=== PATIENT | male | born 1945 | race Caucasian/White ===

== ENCOUNTER 2023-03-02 06:50 | Day surgery (SDC) | payer OTHER ==
[2023-02-24 13:34] VITALS: BP 174/88
[~2023-03-02] VITALS: Ht 175.3 cm; Wt 72.3 kg
[~2023-03-02 06:50] MED LIST: BAYER CHEWABLE81 MG PO; MULTI-DAY PLUS1 EAC1 PO; OSTERA TABLET1 EACH PO; OXYBUTYNIN CHLO10 MG PO; STRESS-C WITH1 EAC1 PO; TOPROL XL50 MG PO; VENTOLIN HFA18 GM; ZESTRIL40 MG PO
[2023-03-02 07:05] VITALS: BP 159/82
[2023-03-02] MEDS ORDERED: VITAMIN D325 MC2 PO (07:09)
[2023-03-02] MEDS ORDERED: IPRATROPIU0.2 MG/1 M INH (07:10)
--- NOTE | 2023-03-02 07:42 | NUR ---
ROSHNI ROUNDS. 30 MINUTES. FACILITATED STORY TELLING; LISTENED EMPATHETICALLY. PT DECLINED PRAYER IN ROOM. PROVIDED SILENT PRAYER FOR SUCCESSFUL PROCEDURE.
--- NOTE | 2023-03-02 10:38 | NUR ---
03/02/23 Cherrie Gray 0954 PT TO PACU FROM OR. ORAL AIRWAY, MASK, AND 02 AT 10 L. RESPIRATIONS TERESA AND UNLABORED. 1002 ORAL AIRWAY DC'D. TYPIST NOTIFIED OF BP TRENDING DOWN. MEDICATION GIVEN BY TYPIST. 1009 PT C/O BEING COLD, WARM BLANKETS APPLIED. PT AWAKE AND ORIENTED, CONVERSING APPROPRIATELY. DR GODINEZ AT BEDSIDE.
--- NOTE | 2023-03-02 11:28 | OR ---
[facility] [address], [place] [address] Signed DATE OF OPERATION: 03/02/2023 SURGEON: Dennis Hodge MD PREOPERATIVE DIAGNOSES: 1. Anorexia. 2. Weight loss (22 pounds). 3. Mother with a history of colonic polyps. 4. Diverticulosis. 5. Reducible supraumbilical trocar site incisional hernia. POSTOPERATIVE DIAGNOSES: 1. Mild to moderate diffuse gastritis. 2. Small hiatal hernia (2 cm). 3. GE junction at 36 cm. 4. Minimal sigmoid diverticulosis. 5. Minimal external hemorrhoids. 6. Reducible supraumbilical trocar site incisional hernia. PROCEDURES: 1. EGD with CLOtest and biopsies of the antrum at GE junction. 2. Colonoscopy without biopsy. ESTIMATED BLOOD LOSS: None. INDICATIONS: Aidan is a 77-year-old gentleman, asked to see me for both upper and lower endoscopy. He said he initially gained some weight after he retired. He said for the last couple of years, he has had no appetite and he is down 22 pounds. He thought that was a good idea. He said his prostate has been removed with the help of robot and his PSA levels remained low. He told his mother had colonic polyps. He was scheduled to see a couple of different gastroenterologists over an hour away. He said that was not very feasible. He was therefore asked to see me with respect to the above. He said he also gave some stool samples recently and they were all negative. He had a CT scan of the chest, abdomen, and pelvis because of his history of smoking as well as the weight loss. He said there was some emphysema and little diverticulosis. He has probably had a right inguinal hernia repair in the past. He really gives me no upper or lower GI complaints. He said he is really not worried. In fact, today he was much more worried about a supraumbilical trocar site incisional hernia that is reducible. This is associated with Electronically Signed By: DENNIS HODGE MD 03/02/23 1128 PATIENT NAME: AIDNA GREEN OPERATIVE REPORT DATE OF : 49 REPORT #: [id number] PHYSICIAN: DENNIS HODGE MD PCP: NO PRIMARY CARE PHYSICIAN REPORT IS CONFIDENTIAL AND NOT TO BE RELEASED WITHOUT AUTHORIZATION [facility] [address], [place] [address] Signed his robotic-assisted laparoscopic prostatectomy. He said he would like to have that repaired. That would be a simple matter for us to repair primarily. He wants me to review that with him in the office at followup. He is hoping the consult has been forwarded from the [facility]. In the office, I had given him a pamphlet on both upper and lower endoscopy. We looked at it in detail. He said he has never had a colonoscopy previously. There is risk including, but not limited to gas bloating, crampy abdominal pain, bleeding, perforation requiring surgery, and missed diagnosis. We also had reviewed the written instructions for the bowel prep line by line. We also went over his medications. I also explained that given his COPD, daily alcohol use and his sleep apnea that he really needed monitored anesthesia care. In that regard, he required preoperative blood work and an EKG. He had expressed understanding and wished to proceed. DESCRIPTION OF PROCEDURE: Aidan was taken into our endoscopy suite and placed in the supine semi-recumbent position. The posterior oropharynx was anesthetized with lidocaine spray. A bite block was utilized for the case. The adult gastroscope was introduced and advanced under direct visualization of the camera into the duodenum. His duodenum and pyloric channel were completely unremarkable. In the stomach, he had mild diffuse erythematous changes consistent with minimal to moderate gastritis. I think mostly associated with smoking and the alcohol. We took biopsies from the antrum for pathologic review as well as CLOtest. Upon retroflexion of the scope, I can see he has a small hiatal hernia, it is 2 cm maybe at the most. The scope was withdrawn up through the area of the GE junction, which was compliant without stricture. There was no gastric or esophageal varices. His GE junction is at 36 cm. He does have some disruption to the Z-line just on one side. We went ahead and took a biopsy of this area. There was no distal esophagitis. No esophagitis in the middle or upper esophagus. However, his arytenoids and the epiglottis and so forth are inflamed and red, little bit edematous from all of his smoking. The vocal cord seemed to be unremarkable. After this, the gas was suctioned out and the gastroscope removed. Aidan tolerated his upper endoscopy quite well. Aidan was rotated into the left lateral decubitus position. He was maintained on IV sedation with propofol per nurse our service consultant. A digital rectal exam was performed. He has very small minimal circumferential external hemorrhoids. He had good sphincter tone. There were no masses. His prostate is absent. The adult colonoscope was introduced and advanced all around into the cecum under direct visualization of the camera without difficulty. It took just a few minutes to get through his sigmoid colon and up into the cecum itself. His prep was quite good. We could easily see the appendiceal orifice and the ileocecal valve. The scope was then slowly withdrawn. We found no polyps in his colon or rectum. He did have some diverticula in the sigmoid colon. They were moderate in size, few in number and scattered about. Upon retroflexion of the scope, we really did not appreciate any pathology above the anal Electronically Signed By: DENNIS HODGE MD 03/02/23 1128 PATIENT NAME: AIDAN GREEN OPERATIVE REPORT DATE OF : 49 REPORT #: [id number] PHYSICIAN: DENNIS HODGE MD PCP: NO PRIMARY CARE PHYSICIAN REPORT IS CONFIDENTIAL AND NOT TO BE RELEASED WITHOUT AUTHORIZATION [facility] [address], [place] [address] Signed canal. After this, the gas was suctioned out and the colonoscope removed. Aidan tolerated the procedure quite well. RECOMMENDATIONS: I will see Aidan back in my office in 7 to 14 days to review his results. He indeed has a reducible supraumbilical trocar site incisional hernia that he would like me to look at in the office as well. Dennis Hodge MD ALB/MODL /[id number] cc: MD Jaylin Pizarro MD Copies: DENNIS HODGE MD ~ Electronically Signed By: DENNIS HODGE MD 03/02/23 1128 PATIENT NAME: AIDAN GREEN OPERATIVE REPORT DATE OF : 49 REPORT #: [id number] PHYSICIAN: DENNIS HODGE MD PCP: NO PRIMARY CARE PHYSICIAN REPORT IS CONFIDENTIAL AND NOT TO BE RELEASED WITHOUT AUTHORIZATION
[2023-03-02 12:01] VITALS: BP 147/77
--- NOTE | 2023-03-04 13:47 | PATH ---
[facility] [address] [facility] [place], [place] [address] Signed SPECIMEN(S): A ANTRUM/PYLORUS BIOPSY SPECIMEN(S): B GE JUNCTION BIOPSY SPECIMEN SOURCE: A. ANTRUM/PYLORUS BIOPSY B. GE JUNCTION BIOPSY CLINICAL HISTORY: Gastritis, small hiatal hernia, diverticulosis FINAL PATHOLOGIC DIAGNOSIS: A. Antrum/pylorus, biopsy: - Benign gastric-type mucosa with focal slight chronic inflammation. - Negative for evidence of Helicobacter organisms on routine HE stain sections. B. 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 JVR:lazarus MICROSCOPIC EXAMINATION: Histologic sections of all submitted blocks are examined by light microscopy. These findings, together with the gross examination, support the pathologic diagnosis. GROSS DESCRIPTION: A. The specimen, labeled and designated "Green, M, " and designated on the requisition "stomach, antrum/pylorus biopsy," is received in formalin and consists of one george soft tissue fragment measuring 0.5 cm, the specimen is submitted entirely in (A1). B. The specimen, labeled and designated "Green, M, " and designated on the requisition "gastroesophageal junction biopsy," is received in formalin and consists of one george soft tissue fragment measuring 0.4 cm, the specimen is submitted entirely in (B1). [facility] (under the direct supervision of a pathologist) The Gross Description was prepared using a voice recognition system. The report was reviewed for accuracy; however, sound-alike word errors, addition and/or deletions may occur. If there is any question about this report, please contact Client Services. PERFORMING LABORATORY: PATIENT NAME: STEPHANIE GREEN PATHOLOGY DATE OF : 49 REPORT #: [id number] PHYSICIAN: KARYNA PATHOLOGY PCP: NO PRIMARY CARE PHYSICIAN REPORT IS CONFIDENTIAL AND NOT TO BE RELEASED WITHOUT AUTHORIZATION [facility] [address] [place] [address] Signed Technical component was performed by [facility], [address] [place] [address] (CLIA# [id number]). Professional interpretation was performed by [facility] - [facility], [address] [place] [phone] (CLIA#: [id number]). Diagnostician: Santosh Mccormack MD Pathologist Electronically Signed 03/04/2023 Copies: ~ PATIENT NAME: STEPHANIE GREEN PATHOLOGY DATE OF : 49 REPORT #: [id number] PHYSICIAN: KARYNA PATHOLOGY PCP: NO PRIMARY CARE PHYSICIAN REPORT IS CONFIDENTIAL AND NOT TO BE RELEASED WITHOUT AUTHORIZATION
== END 2023-03-02 11:55 | disposition home or self-care (01) ==
LOC: OPS 06:50 → DS 06:50 → OPS 11:15 → DS 11:15 → OPS 11:55
PROVIDERS: ATTEND Colon & Rectal Surgery
PROC: 0DJD8ZZ Inspection of Lower Intestinal Tract, Via Natural or Artificial Opening Endoscopic (ICD-10-PCS; principal; 2023-03-02 08:35)
PROC: 0DB48ZX Excision of Esophagogastric Junction, Via Natural or Artificial Opening Endoscopic, Diagnostic (ICD-10-PCS; 2023-03-02 08:35)
DX: K29.70 Gastritis, unspecified, without bleeding (principal); K57.30 Diverticulosis of large intestine without perforation or abscess without bleeding; K44.9 Diaphragmatic hernia without obstruction or gangrene; K64.4 Residual hemorrhoidal skin tags; R63.4 Abnormal weight loss; Z83.719 Family history of colon polyps, unspecified; J44.9 Chronic obstructive pulmonary disease, unspecified; G47.33 Obstructive sleep apnea (adult) (pediatric); I10 Essential (primary) hypertension; F10.10 Alcohol abuse, uncomplicated; Z85.46 Personal history of malignant neoplasm of prostate
CPT/HCPCS: 00813; 36415; 87077; 88305; J2704; J7121

== ENCOUNTER 2023-03-22 14:36 | Emergency (ER) | payer OTHER ==
[~2023-03-22] VITALS: Ht 175.3 cm; Wt 69.5 kg
[~2023-03-22 14:36] MED LIST changes: +IPRATROPIU0.2 MG/1 M INH; +VITAMIN D325 MC2 PO
[2023-03-22] MEDS ORDERED: CEPHALEXIN500 M1 PO (18:03)
[2023-03-22] MEDS ORDERED: ANTIBIOTIC28.4 GM TOP (18:03)
[2023-03-22 18:15] VITALS: BP 105/61
== END 2023-03-22 18:15 | disposition home or self-care (01) ==
LOC: ED 14:36
DX: L03.031 Cellulitis of right toe (principal); I10 Essential (primary) hypertension; J44.9 Chronic obstructive pulmonary disease, unspecified; F17.200 Nicotine dependence, unspecified, uncomplicated; Z79.899 Other long term (current) drug therapy; Z79.82 Long term (current) use of aspirin; Z79.51 Long term (current) use of inhaled steroids
CPT/HCPCS: 99283

== ENCOUNTER 2024-07-25 17:09 | Emergency (ER) | payer OTHER ==
[~2024-07-25] VITALS: Ht 175.3 cm; Wt 70.5 kg
[~2024-07-25 17:09] MED LIST changes: +ANTIBIOTIC28.4 GM TOP; +CEPHALEXIN500 M1 PO; +STRIVERDI RESPIM4 GM
[2024-07-25 17:27] LABS: BASOPHILS 0.4 % (0.2-1.2); EOSINOPHILS 10.6 % (0.8-7.0); HEMATOCRIT 41.9 % (40.1-51.0); HEMOGLOBIN 14.3 g/dL (13.7-17.5); MCH 34.4 PG (25.7-32.2); MCHC 34.1 g/dL (32.3-36.5); MCV 100.7 fL (79.0-92.2); MONOCYTES 13.6 % (5.3-12.2); NEUTROPHILS 52.2 % (34.0-67.9); PLATELET COUNT 275 K/uL (163-337); RBC 4.16 M/uL (4.63-6.08)
[2024-07-25 17:45] LABS: ALBUMIN/GLOBULIN RATIO 1.14 (1.1-2.4); ANION GAP 7.9 (7-21); BILIRUBIN, TOTAL 0.6 mg/dL (0.2-1.0); BUN/CREATININE RATIO 14.06 (6.0-28.6); CALCIUM 8.8 mg/dL (8.5-10.1); CREATININE, SERUM 0.64 mg/dL (0.70-1.30); POTASSIUM 3.9 mmol/L (3.5-5.1); PROTEIN, TOTAL 7.5 g/dL (6.4-8.2)
[2024-07-25] MEDS ORDERED: PREDNISONE20 MG PO (19:15)
[2024-07-25] MEDS ORDERED: predniSONE 20 MG TAB PO ONE (19:15)
[2024-07-25 19:45] VITALS: BP 137/85
--- NOTE | 2024-07-26 08:27 | EKG ---
[facility] [address] [facility] [place] [address] Signed Normal sinus rhythm Left axis deviation Right bundle branch block Abnormal ECG When compared with ECG of 31-AUG-2021 16:27, Right bundle branch block is now present Confirmed by Thien العراقي MD ([id number]) on 07/26/2024 8:27:42 AM Electronically Signed By: THIEN العراقي MD 07/26/24 0827 PATIENT NAME: NORMASTEPHANIE JOSE FRANCISCO Electrocardiogram DATE OF : 49 PHYSICIAN: THIEN العراقي MD REPORT #: [id number] REPORT IS CONFIDENTIAL AND NOT TO BE RELEASED WITHOUT AUTHORIZATION
== END 2024-07-25 19:45 | disposition home or self-care (01) ==
LOC: ED 17:09
PROVIDERS: Emergency Medicine
DX: J44.1 Chronic obstructive pulmonary disease with (acute) exacerbation (principal); F17.200 Nicotine dependence, unspecified, uncomplicated
CPT/HCPCS: 36415; 71045; 80053; 83880; 84484; 85025; 99285-25; J7512